=== PATIENT | female | born 1945 | race Caucasian/White ===

== ENCOUNTER → 2024-05-06 11:47 | Outpatient (REF) | payer MEDICARE, OTHER, SELFPAY ==
[2024-05-06 13:27] LABS: ALT (SGPT) 11 U/L (0-35); AST (SGOT) 24 U/L (14-36); Albumin 4.1 g/dl (3.5-5.0); Alkaline Phosphatase 89 U/L (38-126); Blood Urea Nitrogen 15 mg/dl (7-17); Calcium 10.3 mg/dl (8.4-10.2); Carbon Dioxide 23 mmol/L (22-30); Chloride 108 mmol/L (98-107); Glucose 89 mg/dl (70-99); HDL Cholesterol 93 mg/dl; LDL Cholesterol, Calculated 72 mg/dl; Potassium 4.5 mmol/L (3.5-5.1); Sodium 143 mmol/L (135-145); Total Bilirubin 0.6 mg/dl (0.2-1.3); Total Cholesterol 183 mg/dl (50-199); Total Protein 6.7 g/dl (6.3-8.2); Triglyceride 93 mg/dl (10-149); Very Low Density Lipoprotein 18 mg/dl (0-30); eGFR > 60.00
[2024-05-06 13:54] LABS: TSH Reflex To Free T4 1.33 uIU/ml (0.47-4.68)
== END ==
LOC: REG 11:47
PROVIDERS: ATTENDING PHYSICIAN Internal Medicine Cardiovascular Disease; FAMILY PHYSICIAN Internal Medicine
DX: E78.2 Mixed hyperlipidemia (principal)
CPT/HCPCS: 36415; 80053; 80061; 84443

== ENCOUNTER → 2024-05-12 15:51 | Outpatient (REF) | payer MEDICARE, OTHER, SELFPAY | LOC: RCS 15:51 | PROVIDERS: ATTENDING PHYSICIAN Internal Medicine Cardiovascular Disease; FAMILY PHYSICIAN Internal Medicine | DX: R06.02 Shortness of breath (principal) | CPT/HCPCS: 93306 ==

== ENCOUNTER → 2024-06-24 09:48 | Outpatient (REF) | payer MEDICARE, OTHER, SELFPAY ==
[2024-06-24 12:24] LABS: % Basophils 0.9 % (0-2); % Immature Granulocytes 0.2 % (0-0.5); % Lymphocytes 41.1 % (20.5-51.1); % Monocytes 10.7 % (1.7-9.3); % Neutrophils 44.1 % (42.2-75.2); Absolute Eosinophils 0.1 10^3/uL (0-0.7); Absolute Lymphocytes 1.9 10^3/uL (1.2-3.4); Absolute Monocytes 0.5 10^3/uL (0.1-0.6); Absolute Neutrophils 2.1 10^3/uL (1.4-6.5); Hematocrit 39.2 % (37.0-47.0); Hemoglobin 12.6 g/dL (12.0-16.0); Mean Corp Hgb Conc. 32.1 g/dL (33.0-37.0); Mean Corpuscular Hgb 28.8 pg (27.0-31.0); Mean Corpuscular Volume 89.5 fL (81.0-99.0); Mean Platelet Volume 10.7 fL (7.4-10.4); Nucleated Red Blood Cells % 0 %; Platelet Count 208 10^3/uL (130-400); Red Blood Cell Count 4.38 10^6/uL (4.20-5.40); Red Cell Dist. Width 14.2 % (11.5-14.5); White Blood Cell Count 4.7 10^3/uL (4.8-10.8)
[2024-06-24 15:32] LABS: ALT (SGPT) 13 U/L (0-35); AST (SGOT) 22 U/L (14-36); Alkaline Phosphatase 93 U/L (38-126); Blood Urea Nitrogen 17 mg/dl (7-17); Calcium 10.2 mg/dl (8.4-10.2); Carbon Dioxide 25 mmol/L (22-30); Chloride 108 mmol/L (98-107); Glucose 92 mg/dl (70-99); Iron 101 ug/dl (37-170); Sodium 142 mmol/L (135-145); Total Bilirubin 0.6 mg/dl (0.2-1.3); Total Protein 6.6 g/dl (6.3-8.2); eGFR > 60.00
[2024-06-24 15:41] LABS: Percent Saturation 39 % (20-50); Total Iron Binding Capacity 256 ug/dl (265-497)
[2024-06-24 17:57] LABS: Vitamin D, 25-OH*** 70.5 ng/mL (30-80)
[2024-06-24 17:59] LABS: Intact PTH 25.2 pg/ml (13.6-85.8)
[2024-06-24 18:46] LABS: Folate > 20.0 ng/ml (2.76-20); Vitamin B12 > 1000 pg/ml (239-931)
== END ==
LOC: REG 09:48
PROVIDERS: ATTENDING PHYSICIAN Internal Medicine
DX: E87.1 Hypo-osmolality and hyponatremia (principal); E87.6 Hypokalemia; R53.83 Other fatigue; D64.9 Anemia, unspecified; E83.52 Hypercalcemia; D51.9 Vitamin B12 deficiency anemia, unspecified
CPT/HCPCS: 36415; 80053; 82306; 82607; 82728; 82746; 83540; 83550; 83970; 85025

== ENCOUNTER → 2024-10-24 14:23 | Outpatient (REF) | payer MEDICARE, OTHER, SELFPAY | LOC: RAD 14:23 | PROVIDERS: ATTENDING PHYSICIAN Anesthesiology; FAMILY PHYSICIAN Internal Medicine | DX: M54.16 Radiculopathy, lumbar region (principal) | CPT/HCPCS: 72131 ==

== ENCOUNTER 2024-12-26 10:50 | Emergency (ER) | payer MEDICARE, OTHER, SELFPAY ==
[2024-12-26] VITALS (7 sets, daily range): BP systolic 151–222; BP diastolic 61–99
[2024-12-26 11:45] LABS: % Eosinophils 3.7 % (0-6); % Immature Granulocytes 0.2 % (0-0.5); % Lymphocytes 25.9 % (20.5-51.1); % Monocytes 9.9 % (1.7-9.3); % Neutrophils 59.3 % (42.2-75.2); Absolute Basophils 0.1 10^3/uL (0-0.2); Absolute Eosinophils 0.2 10^3/uL (0-0.7); Absolute Lymphocytes 1.3 10^3/uL (1.2-3.4); Absolute Monocytes 0.5 10^3/uL (0.1-0.6); Absolute Neutrophils 2.9 10^3/uL (1.4-6.5); Hematocrit 41.6 % (37.0-47.0); Hemoglobin 13.6 g/dL (12.0-16.0); Mean Corp Hgb Conc. 32.7 g/dL (33.0-37.0); Mean Corpuscular Hgb 28.8 pg (27.0-31.0); Mean Corpuscular Volume 88.1 fL (81.0-99.0); Mean Platelet Volume 9.9 fL (7.4-10.4); Nucleated Red Blood Cells % 0 %; Platelet Count 200 10^3/uL (130-400); Red Blood Cell Count 4.72 10^6/uL (4.20-5.40); Red Cell Dist. Width 13.4 % (11.5-14.5); White Blood Cell Count 4.9 10^3/uL (4.8-10.8)
--- NOTE | 2024-12-26 11:46 | ED.GENMED ---
History of Present Illness
General
Chief Complaint: Weakness
Time Seen by Provider: 12/26/24 11:49
History of Present Illness
History of Present Illness:
Note:
CHIEF COMPLAINT(S)
Elevated blood pressure and dizziness.
HISTORY OF PRESENT ILLNESS
The patient is an 79-year-old female with a history of hypertension who presented with an episode of elevated blood pressure. She stated that her blood pressure was measured at 200/100 mmHg at home, prompting a call to family members for assistance.
The patient reported feeling dizzy, shaky, and experiencing heart palpitations, described as her heart 'out racing a little bit.' She also mentioned feeling weak the following day. The patient took an additional half dose of her usual Losartan
medication, which she believes helped to alleviate her symptoms. She is currently prescribed 25 mg of Metoprolol twice daily and 50 mg of Losartan once daily. 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
experience any chest pain or severe trouble breathing but noted some discomfort. She also reported a persistent headache and some nausea.
PHYSICAL EXAM
- Neurological: Grossly intact without focal deficits.
- Cardiovascular: Regular rate and rhythm with no murmurs.
- Respiratory: Lungs clear to auscultation.
- General: Patient appears well, ambulating without assistance.
PROBLEM LIST
Acute Problems:
- Hypertensive urgency with symptoms of dizziness and palpitations.
- Headache and nausea potentially related to hypertension.
PLAN
Administer intravenous hydralazine to lower blood pressure and reassess the patients condition. Consider adjustments to oral medications, favoring changes in Losartan dosing over Metoprolol adjustments due to the patients heart rate.
DIFFERENTIAL DIAGNOSIS
The Differential Diagnosis includes, in no particular order and is not limited to:
1. Essential hypertension
2. Hypertensive emergency
3. White coat hypertension
4. Anxiety-induced hypertension
5. Drug-induced hypertension
6. Renal artery stenosis
7. Primary aldosteronism
8. Pheochromocytoma
9. Cushings syndrome
10. Hyperthyroidism
EKG
My independent EKG interpretation is:
- Rhythm: Normal
- Heart Rate: 71 beats per minute
- ID Interval: First-degree AV block
- No ST changes concerning for ischemia
Disposition:
DIAGNOSIS
- Hypertensive urgency with symptoms of dizziness and palpitations (ICD-10 Code: I16.0)
SUMMARY OF ENCOUNTER
The patient, an 79-year-old female with a history of hypertension, was seen in the emergency department due to an episode of elevated blood pressure at 200/100 mmHg accompanied by dizziness, shakiness, heart palpitations, and weakness. She
experienced these symptoms early in the morning and had a persistent headache and nausea. An additional half dose of Losartan was taken, which helped in alleviating her symptoms. The patient was evaluated, and a decision was made to administer
intravenous hydralazine to reduce her blood pressure.
DISPOSITION
Discharge
CONSIDERATION FOR ADMISSION
There was no evidence of end-organ damage noted, and given the improvement in symptoms and blood pressure control, hospitalization was not warranted at this time.
ASSESSMENT
The patients symptoms were primarily due to hypertensive urgency. There was no indication of end-organ damage, and her symptoms resolved significantly with intervention.
EMERGENCY TREATMENTS ADMINISTERED
- Intravenous hydralazine was administered to lower the patients blood pressure.
REASSESSMENT
After administration of hydralazine, the patients blood pressure decreased, and she reported a complete resolution of her symptoms.
PLAN
Increase Losartan to 50 mg twice daily while maintaining the same dose of Metoprolol. The patient should follow up with her primary care physician for ongoing management of her hypertension.
PATIENT EDUCATION AND COUNSELING
The patient was informed about her condition, and the importance of adhering to medication regimens was emphasized. The plan for adjusting medication dosage was explained, and she felt comfortable with the proposed approach.
FOLLOW-UP INSTRUCTIONS
Patient is advised to follow up with her primary care physician for further blood pressure management.
MEDICATION RECONCILIATION
- Increase Losartan to 50 mg twice daily
- Continue Metoprolol 25 mg twice daily
MEDICAL DECISION MAKING
Number and Complexity of Problems Addressed: The primary concern was the patients hypertensive urgency with symptoms such as dizziness and palpitations, which required immediate intervention.
Data: Appropriate tests were considered, and interventions were initiated, including the administration of hydralazine to manage the elevated blood pressure situation.
Risk: The decision-making process considered potential hospitalization; however, due to the absence of end-organ damage and the improved response to treatment, outpatient management was deemed sufficient. The patients medication regimen was adjusted
to better control her hypertension and prevent future episodes. The patient exhibited understanding of the care plan and was given an opportunity to ask questions.
Past History
Past History
ED Past Medical History: HTN, Hypercholesterolemia and Other (arthritis, Covid Jun 2021)
ED Past Surgical History: Bowel resection
Social History
Tobacco: Non-smoker
Alcohol: None
Drug: None
Living: with family
Employment: Retired
Family History
Family History: Other (Noncontributory)
Phy Exam
Physical Exam
Physical Exam:
.
Course
Orders/Labs/Results
Orders:
Orders
12/26/24 10:55
EKG [Electrocardiogram (*1)] Urgent
Reason for Study: Palpitations
EKG- Treatment ONCE
12/26/24 11:35
Complete Blood Count/With Diff Urgent
Comprehensive Metabolic Panel Urgent
Troponin I Urgent
12/26/24 12:18
HydrALAZINE [Apresoline] 10 mg IV NOW STA
12/26/24 13:24
EKG [Electrocardiogram (*1)] Urgent
Reason for Study: Chest Pain
EKG- Treatment ONCE
Abnormal Lab Results
12/26/24
11:35
MCHC 32.7 L g/dL
(33.0-37.0)
Monocytes % 9.9 H %
(1.7-9.3)
Chloride 110 H mmol/L
(98-107)
Glucose 104 H mg/dl
(70-99)
Calcium 10.7 H mg/dl
(8.4-10.2)
12/26/24 11:35
12/26/24 11:35
Vital Signs
Initial and Last Documented VS:
Initial Vital Signs
Temp Pulse Resp BP Pulse Ox
98.4 F 78 18 209/99 99
12/26/24 10:53 12/26/24 10:53 12/26/24 10:53 12/26/24 10:53 12/26/24 10:53
Last Documented Vital Signs
Temp Pulse Resp BP Pulse Ox
98.4 F 86 14 151/73 97
12/26/24 10:53 12/26/24 14:00 12/26/24 14:00 12/26/24 14:00 12/26/24 14:00
*Critical Care Note
Total Time (30-74mins, 75-104mins- exclusive of procedures): Not Applicable
ED Attending Note
-
Portions of this chart may have been created with voice recognition software.� Occasional wrong word or��sound alike� substitutions may have occurred due to the inherent limitations of voice recognition software.
Discharge Plan
Departure
Patient Disposition: Home (Routine Discharge)
Date of Disposition: 12/26/24
Time of Disposition: 14:06
Patient with high blood pressure during this ER visit?: No
Discharge Problem:
Hypertensive urgency
Instructions: BLOOD PRESSURE
Prescriptions:
No Action
rosuvastatin 10 MG tablet
10 mg PO HS
omeprazole 20 mg capsule,delayed release(DR/EC)
20 mg PO DAILY
Artificial Tears (PF) Dropperette
1 drp BOTH EYES PRN PRN (Reason: dry eyes)
Vitamin B-12
1 tab PO DAILY
Vitamin D3
1 tab PO DAILY
biotin
1 tab PO DAILY
potassium 99 mg Tablet
99 - 198 mg PO DAILY
losartan 25 mg Tablet
25 mg PO DAILY
metoprolol tartrate 25 mg tablet
25 mg PO BID
acetaminophen [acetaminophen] 325 mg tablet
650 mg PO Q4HPRN PRN (Reason: mild pain) Qty: 1 0RF
ibuprofen 200 mg tablet
400 - 600 mg PO Q6HPRN PRN (Reason: moderate pain) Qty: 1 0RF
tramadol 50 mg tablet
25 - 50 mg PO Q6HPRN PRN (Reason: severe pain/breakthrough pain) Qty: 20 0RF
Referrals:
Edwin Barrett MD [Family Provider, Internal Medicine]
Activity Restrictions/Additional Instructions:
Increase your losartan to 50 mg twice daily
Follow-up with your primary care physician within the next week to discuss further blood pressure medication adjustments if needed
Interventions
Interventions:
*Risk Screen - Suicide Last Done: 12/26/24 10:53
*General Assessment Last Done: 12/26/24 10:53
*Neglect/Abuse Screening Last Done: 12/26/24 10:53
*ED- Fall Risk Assessment Last Done: 12/26/24 10:53
*ED COVID-19 Vaccine History Last Done: 12/26/24 10:53
*Nursing Disposition Last Done: 12/26/24 14:21
ED- Cardiac Assessment Last Done: 12/26/24 11:42
ED- Neurological Assessment Last Done: 12/26/24 11:42
ED- Pulmonary Assessment Last Done: 12/26/24 11:42
Discharge Date and Time
Discharge Date/Time: 12/26/24 14:23
Print Language: [id number]
[2024-12-26 12:07] LABS: ALT (SGPT) 11 U/L (0-35); AST (SGOT) 22 U/L (14-36); Albumin 4.4 g/dl (3.5-5.0); Alkaline Phosphatase 103 U/L (38-126); Blood Urea Nitrogen 14 mg/dl (7-17); Calcium 10.7 mg/dl (8.4-10.2); Carbon Dioxide 24 mmol/L (22-30); Chloride 110 mmol/L (98-107); Glucose 104 mg/dl (70-99); Sodium 143 mmol/L (135-145); Total Bilirubin 1.2 mg/dl (0.2-1.3); Total Protein 7.3 g/dl (6.3-8.2); eGFR > 60.00
[2024-12-26 12:16] LABS: Troponin I < 0.012 ng/ml
[2024-12-26] MEDS: APRESOLINE 10 MG IV (12:42)
== END 2024-12-26 14:23 | disposition home or self-care (01) ==
LOC: EMR 10:50
PROVIDERS: EMERGENCY PHYSICIAN Emergency Medicine; FAMILY PHYSICIAN Internal Medicine
DX: I16.0 Hypertensive urgency (principal); I10 Essential (primary) hypertension; E78.00 Pure hypercholesterolemia, unspecified; Z79.899 Other long term (current) drug therapy
CPT/HCPCS: 99284; 96374; 80053; 84484; 85025; 93005

== ENCOUNTER → 2025-05-29 10:17 | Outpatient (REF) | payer MEDICARE, OTHER, SELFPAY | LOC: WDC 10:17 | PROVIDERS: ATTENDING PHYSICIAN Internal Medicine | DX: R22.31 Localized swelling, mass and lump, right upper limb (principal) | CPT/HCPCS: 76642; 77062; 77066 ==